=== PATIENT | male | born 1940 | race Caucasian/White ===

== ENCOUNTER 2017-11-22 06:37 | Emergency (ER) | payer BC, OTHER ==
[~2017-11-22] VITALS: Ht 180.3 cm; Wt 117.9 kg
--- NOTE | ~2017-11-22 | EKG ---
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 : 1940 Requested By: Elenita Rangel Order Number: [id number] MD: Jj Padilla Measurements Intervals [place] Rate: 74 P: 10 AL: 263 QRS: 11 QRSD: 161 T: 45 QT: 459 QTc: 510 Interpretive Statements Sinus rhythm Prolonged AL interval Right bundle branch block Baseline wander in lead(s) I,III,aVL Compared to ECG 09/08/2010 21:33:21 First degree AV block now present Electronically Signed On 11-22-2017 7:49:00 UPHOLSTERY TRIMMER by Jj Padilla [email or web address] <ELECTRONICALLY SIGNED> By: Jj Padilla MD, [facility] 11/22/17 0749 Jj Padilla MD, [facility] /EPI
--- NOTE | ~2017-11-22 | EKG ---
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 : 1940 Requested By: Elenita Rangel Order Number: [id number] MD: Jj Padilla Measurements Intervals [place] Rate: 73 P: 6 PA: 259 QRS: 8 QRSD: 165 T: 26 QT: 463 QTc: 511 Interpretive Statements Sinus rhythm Prolonged PA interval Right bundle branch block Small nondiagnostic inferior Q waves Compared to ECG 09/08/2010 21:33:21 First degree AV block now present Electronically Signed On 11-23-2017 7:45:29 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
[~2017-11-22 06:37] MED LIST: ADULT LOW DOSE81 MG PO; ADVIL100 M2 PO; ASPIRIN325 PO; ATIVAN1 MG PO; ATORVASTATIN CA80 MG PO; BENADRYL25 MG PO; BENICAR 5 MG5 MG PO; BENICAR20 MG PO; BYSTOLIC 5 MG5 M1 PO; BYSTOLIC20 MG; CENTRUM SILVER1 EAC1 PO; CIPROFLOXACIN500 M1 PO; DIOVAN PO; DIOVAN160 MG; FISHOIL PO; GABAPENTIN100 MG PO; GLUCOPHAGE500 MG PO; HYDROCODON-ACE1 EA11 PO; HYDROCORTISONE120 M1; LEVOXYL175 MCG PO; LEVOXYL200 MCG PO; LIPITOR80 MG PO; LIVALO4 MG PO; OXYCODONE-ACET1 EACH PO; PAXIL CR25 MG PO; PAXIL10 MG PO; PAXIL20 MG; PERCOCET 5-3251 EACH PO; VOLTAREN GEL 1100 G1 TOP; XANAX 0.25 MG0.25 MG PO; ZETIA10 MG PO
[2017-11-22] MEDS ORDERED: PREDNISONE 20 M20 MG PO (06:58)
[2017-11-22] MEDS ORDERED: CLARITIN10 MG PO (06:58)
[2017-11-22 08:00] VITALS: BP 92/58
== END 2017-11-22 08:00 | disposition home or self-care (01) ==
LOC: ER 06:37
DX: T78.1XXA Other adverse food reactions, not elsewhere classified, initial encounter (principal); R06.03 Acute respiratory distress; X58.XXXA Exposure to other specified factors, initial encounter; E89.0 Postprocedural hypothyroidism; Z88.0 Allergy status to penicillin

== ENCOUNTER → 2019-01-19 | Outpatient (CLI) | payer BC, OTHER ==
[~2019-01-19] VITALS: Ht 180.3 cm; Wt 114.9 kg
[~2019-01-19] MED LIST changes: +CLARITIN10 MG PO; +JARDIANCE25 MG PO; +PREDNISONE 20 M20 MG PO; +PROTONIX40 M1 PO; +TOLTERODINE TART2 M1 PO; +VASCEPA0.5 GM PO
--- NOTE | ~2019-01-19 | HPC ---
[facility] [place] [address] PAIN MANAGEMENT CONSULTATION Name: SOY ALLAN Room #: REG CL M.R.#: [id number] Admission: 01/19/19 ������������������ Attend Phys: Gavin Dunlap MD Discharge: ������������������ Date of : 38 Report #: [id number] THIS REPORT FOR: //name// CC: Adam Dunlap DATE OF SERVICE: 01/19/2019 Followup visit for pain in the left hip and across the low back. The patient was last in the pain clinic nearly 3 years ago. He is back today complaining of pain in his hip, worse with weightbearing and standing. Pain can be severe at times. He also has pain lying flat at night when he is in his recliner. He often has pain across his low back as well as radicular component of pain. The pain has been worsening over the course of the last several months. Part of that is due to inactivity. He had completed a course of physical therapy at [facility] and he thought it was much better after that. We discussed possibly returning to therapy. He scores his pain as an 8/10. It is exacerbated by walking, prolonged sitting and prolonged standing. PQRS REVIEW: All medications reviewed and reconciled. He is on no blood thinners. He is on medication for blood pressure and takes Benicar daily. Comorbidities include high blood pressure. Denies use of tobacco. 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 He does not use opioids. PHYSICAL EXAMINATION: Blood pressure 109/63, heart rate 70, respirations 16. BMI is 35.4. He moves independently from sitting to standing position. He has pain with swinging of his hip forward and during his gait and that pain radiates down the anterior thigh as well as in the buttock. It does not radiate further and does not appear to be radicular. He has pain across his low back with flexion and extension. There is some tenderness across the sacroiliac joint as well. Straight leg raising is negative for radiculopathy. Examination of the hip reveals pain with external rotation and hip flexion and internal rotation. There is tenderness over the greater trochanter. Sensation is otherwise normal. His mood is generally weak in the lower extremities. IMPRESSION: Left hip pain seems to be the primary pain generator. A hip injection may provide both diagnostic and therapeutic benefits. [address] [address] PAIN MANAGEMENT CONSULTATION Name: SOY ALLAN Room #: REG CLNatalia Hoskins#: [id number] Admission: 01/19/19 ������������������ Attend Phys: Gavin Dunlap MD Discharge: ������������������ Date of : 38 Report #: [id number] I think he has a second pain generator in his low back, likely spondylitic. How much of his pain is being caused by his back in addition to his hip remains to be seen. RECOMMENDATIONS: For hip injection today for both diagnostic and therapeutic purposes. We will follow him closely and see him back in another 2-4 weeks. I referred him to physical therapy at [facility] where he worked with Denise. We have specified her as his choice of therapist. PROCEDURE: Left hip injection under fluoroscopic guidance. He was taken to fluoroscopic suite, placed supine. Skin was prepped with ChloraPrep and a 22-gauge needle advanced into the hip capsule. I injected 1 mL of Omnipaque and good arthrogram was demonstrated. This was then followed by 4 mL of 0.5% bupivacaine mixed with 40 mg of triamcinolone. He tolerated the procedure well and was observed for a short time and discharged. Followup visit planned in the pain clinic in 2-4 weeks. ��������������������������������������������� ���������������������������������������� By: ��������������������������������������������� [id number] Gavin Dunlap MD /nt
[2019-01-19 11:01] VITALS: BP 109/63
--- NOTE | 2019-01-19 11:24 | NUR ---
Pain Clinic Assessment: 1. History of Osteoarthritis: Not Applicable History of Rheumatoid Arthritis: Not Applicable 2. Height: 5 ft. 11 in. 180.3 cm. Weight: 253.4 lb. oz. 114.942 kg. Patient's BMI: 35.4 3. Vital Signs: BP: 109/63 Pulse: 70 Resp: 16 Temp: 02 Sat: 95 ECG Mon: 4. Pain Intensity: 8 5. Fall Risk: Dizziness: Y Needs help standing or walking: N Fallen in the last 3 months: N Fall risk comments: 6. Patient on Blood Thinner: None 7. History of Hypertension: Y 8. Opioid Therapy greater than 6 weeks: N Opiate Contract Signed: 9. Risk Assessment Tool Provided: 10. Functional Assessment Tool: 11. Recreational Drug Use: Never Drug Type: Tobacco Use: Never Smoker Tobacco Type: Amount or Packs/day: How Many Years: Alcohol Use: Yes Frequency: Weekly Quant: 1-2
== END | disposition home or self-care (01) ==
LOC: PAIN 06:58
DX: M25.552 Pain in left hip (principal); Z68.35 Body mass index [BMI] 35.0-35.9, adult; Z98.890 Other specified postprocedural states; Z79.899 Other long term (current) drug therapy

== ENCOUNTER → 2019-12-05 | Outpatient (CLI) | payer BC, OTHER | LOC: SJCVCIMAG 09:55 | DX: I35.0 Nonrheumatic aortic (valve) stenosis (principal) ==

== ENCOUNTER → 2019-12-13 | Outpatient (CLI) | payer BC, OTHER | LOC: SJCVCIMAG 07:31 | DX: I44.0 Atrioventricular block, first degree (principal); I45.10 Unspecified right bundle-branch block; R94.31 Abnormal electrocardiogram [ECG] [EKG]; I25.10 Atherosclerotic heart disease of native coronary artery without angina pectoris ==

== ENCOUNTER → 2020-09-04 | Outpatient (CLI) | payer BC, OTHER | LOC: SJCVCIMAG 07:57 | PROVIDERS: ATTEND Internal Medicine Cardiovascular Disease | DX: I08.8 Other rheumatic multiple valve diseases (principal); I48.91 Unspecified atrial fibrillation; I25.10 Atherosclerotic heart disease of native coronary artery without angina pectoris; E66.9 Obesity, unspecified ==

== ENCOUNTER → 2021-07-30 | Outpatient (CLI) | payer BC, OTHER | LOC: SJCVC 09:22 | PROVIDERS: ATTEND Internal Medicine Cardiovascular Disease | DX: I45.10 Unspecified right bundle-branch block (principal); R94.31 Abnormal electrocardiogram [ECG] [EKG]; I25.10 Atherosclerotic heart disease of native coronary artery without angina pectoris; I87.2 Venous insufficiency (chronic) (peripheral); E11.9 Type 2 diabetes mellitus without complications; I35.0 Nonrheumatic aortic (valve) stenosis; E11.00 Type 2 diabetes mellitus with hyperosmolarity without nonketotic hyperglycemic-hyperosmolar coma (NKHHC); I11.0 Hypertensive heart disease with heart failure; M54.10 Radiculopathy, site unspecified; M54.9 Dorsalgia, unspecified; G47.33 Obstructive sleep apnea (adult) (pediatric); D68.59 Other primary thrombophilia; R20.0 Anesthesia of skin; I48.91 Unspecified atrial fibrillation; Z72.89 Other problems related to lifestyle; Z79.84 Long term (current) use of oral hypoglycemic drugs; Z79.899 Other long term (current) drug therapy; Z88.0 Allergy status to penicillin; Z86.16 Personal history of COVID-19 ==

== ENCOUNTER → 2021-09-10 | Outpatient (CLI) | payer BC, OTHER | LOC: SJCVCIMAG 08-21 09:48 | PROVIDERS: ATTEND Internal Medicine Cardiovascular Disease | DX: I08.2 Rheumatic disorders of both aortic and tricuspid valves (principal); I48.91 Unspecified atrial fibrillation; I25.10 Atherosclerotic heart disease of native coronary artery without angina pectoris; I10 Essential (primary) hypertension; R00.2 Palpitations ==